=== PATIENT | female | born 1975 | race African-American/Black ===

== ENCOUNTER 2016-11-21 10:26 | Emergency (ER) | payer MEDICARE, OTHER ==
[~2016-11-21] VITALS: Ht 170.2 cm; Wt 70.0 kg
[~2016-11-21 10:26] MED LIST: DEPA500T3 PO; HYDR-2951 PO; METO50TA PO
[2016-11-21] MEDS ORDERED: ZYPR5TAB PO (11:10)
[2016-11-21] MEDS ORDERED: METF500T PO (11:10)
[2016-11-21] MEDS ORDERED: GABA100C4 PO (11:10)
[2016-11-21] MEDS ORDERED: LISI-519 PO (11:10)
[2016-11-21 11:11] VITALS: BP 158/94; PULSE 88; RESP 18; O2SAT 99
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
[2016-11-21] MEDS ORDERED: SODIUM CHLORIDE 0.9% FLUSH 10 ML FLUSH IVF PRN (11:30)
[2016-11-21 12:14] LABS: AUTOMATED NEUTROPHIL # 4.4 TH/MM3 (1.8-7.7); BASOPHIL % 0.5 % (0.0-2.0); EOSINOPHIL % 0.7 % (0.0-4.0); HEMATOCRIT 33.3 % (35.0-46.0); HEMO FLAGS DIFF FINAL; LYMPHOCYTE # 1.7 TH/MM3 (1.0-4.8); MEAN CELL VOLUME 90.1 FL (80.0-100.0); MEAN CORPUSCULAR HEMOGLOBIN 29.4 PG (27.0-34.0); MEAN CORPUSCULAR HGB CONC 32.6 % (32.0-36.0); MONO % 5.8 % (0.0-8.0); PLATELET COUNT 401 TH/MM3 (150-450); RED BLOOD COUNT 3.69 MIL/MM3 (4.00-5.30); RED CELL DISTRIBUTION WIDTH 13.5 % (11.6-17.2); WHITE BLOOD COUNT 6.6 TH/MM3 (4.0-11.0)
[2016-11-21 12:28] VITALS: TEMP 98.8
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
[2016-11-21 12:29] VITALS: O2SAT 98
[2016-11-21 12:36] LABS: ALKALINE PHOSPHATASE 73 U/L (45-117); ALT (GPT) 8 U/L (10-53); ANION GAP 8 MEQ/L (5-15); AST (GOT) 10 U/L (15-37); BICARBONATE 23.2 MEQ/L (21.0-32.0); BLOOD UREA NITROGEN 4 MG/DL (7-18); CHLORIDE 109 MEQ/L (98-107); CREATINE KINASE 142 U/L (26-192); GLOMERULAR FILTRATION RATE 122 ML/MIN (>89); MAGNESIUM 1.6 MG/DL (1.5-2.5); POTASSIUM 3.6 MEQ/L (3.5-5.1); SODIUM (NA) 140 MEQ/L (136-145); TOTAL BILIRUBIN ADULT 0.1 MG/DL (0.2-1.0)
[2016-11-21] MEDS ORDERED: ACETAMINOPHEN 325 MG TAB PO ONE (12:45)
[2016-11-21 12:48] LABS: CKMB LESS THAN 0.5 NG/ML (0.5-3.6)
--- NOTE | 2016-11-21 13:40 | RADRPT ---
EXAM DATE/TIME: 11/21/2016 12:19 [facility] COMPARISON: No previous studies available for comparison. INDICATIONS : Right sided chest pain MEDICAL HISTORY : Diabetes mellitus type II. Hypertension Peripheral vascular disease. SURGICAL HISTORY : None. ENCOUNTER: Initial ACUITY: 4 - 6 days PAIN SCORE: 9/10 LOCATION: Right chest FINDINGS: A single view of the chest demonstrates the lungs to be symmetrically aerated without evidence of mas s, infiltrate or effusion. The cardiomediastinal contours are unremarkable. Osseous structures are intact. CONCLUSION: Normal examination. Abraham Rodríguez MD on November 21, 2016 at 13:35 Board Certified Radiologist. This report was verified electronically.
[2016-11-21 13:51] LABS: BLOOD, URINE NEG (NEG); GLUCOSE,URINE NEG (NEG); KETONE, URINE NEG (NEG); MUCUS URINE FEW /lpf (OCC); NITRITE,URINE NEG (NEG); PH, URINE 7.5 (5.0-8.5); SQUAMOUS EPITHELIAL CELL URINE 1 /hpf (0-5); TRANSITIONAL EPI CELLS, URINE <1 /hpf; URINE COLOR YELLOW (YELLW/STRAW)
[2016-11-21 13:53] LABS: COMMENT (UR) CULT NOT INDICATED; CULTURE IF INDICATED CULT NOT INDICATED
--- NOTE | 2016-11-22 11:36 | EKG ---
Date Performed: 11/21/2016 Time Performed: 10:41:13 PTAGE: 40 years EKG: Sinus rhythm POSSIBLE LEFT ATRIAL ENLARGEMENT NONSPECIFIC T-WAVE ABNORMALITY BORDERLINE ECG NO PREVIOUS TRACING DOCTOR: Baltazar Santana Interpretating Date/Time 11/22/2016 11:35:37
== END 2016-11-21 13:42 | disposition left against medical advice (07) ==
LOC: NEPC 10:26
DX: R07.9 Chest pain, unspecified (principal); M79.672 Pain in left foot; E11.9 Type 2 diabetes mellitus without complications; I10 Essential (primary) hypertension; Z76.5 Malingerer [conscious simulation]; Z79.84 Long term (current) use of oral hypoglycemic drugs; Z79.899 Other long term (current) drug therapy
CPT/HCPCS: 71010; 73630; 80053; 81001; 82550; 82552; 83735; 84484; 84703; 85025; 85379; 85610; 85730; 93005; 99285

== ENCOUNTER 2016-11-26 22:48 | Emergency (ER) | payer MEDICARE, OTHER ==
[~2016-11-26 22:48] MED LIST changes: -DEPA500T3 PO; +GABA100C4 PO; -HYDR-2951 PO; +LISI-519 PO; +METF500T PO; -METO50TA PO; +ZYPR5TAB PO
[2016-11-26 23:20] VITALS: BP 172/90; PULSE 115; RESP 20; TEMP 98.6; O2SAT 100
[2016-11-26] MEDS ORDERED: ASPIRIN 81 MG CHEW TAB CHEW ONE (23:30)
[2016-11-26] MEDS ORDERED: OLANZapine ODT 10 MG TAB PO ONE (23:30)
[2016-11-27 00:22] LABS: BASOPHIL # 0.1 TH/MM3 (0-0.2); BASOPHIL % 0.7 % (0.0-2.0); EOSINOPHIL # 0.1 TH/MM3 (0-0.4); EOSINOPHIL % 0.6 % (0.0-4.0); HEMATOCRIT 31.1 % (35.0-46.0); HEMO FLAGS DIFF FINAL; LYMPHOCYTE # 4.1 TH/MM3 (1.0-4.8); MEAN CELL VOLUME 90.7 FL (80.0-100.0); MEAN CORPUSCULAR HEMOGLOBIN 30.1 PG (27.0-34.0); MEAN CORPUSCULAR HGB CONC 33.2 % (32.0-36.0); MONO % 7.5 % (0.0-8.0); NEUT % 50.2 % (16.0-70.0); PLATELET COUNT 407 TH/MM3 (150-450); RED BLOOD COUNT 3.43 MIL/MM3 (4.00-5.30); RED CELL DISTRIBUTION WIDTH 13.6 % (11.6-17.2); WHITE BLOOD COUNT 9.9 TH/MM3 (4.0-11.0)
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
[2016-11-27 00:35] LABS: ALT (GPT) 19 U/L (10-53); ANION GAP 7 MEQ/L (5-15); AST (GOT) 12 U/L (15-37); BICARBONATE 27.3 MEQ/L (21.0-32.0); BLOOD UREA NITROGEN 16 MG/DL (7-18); CHLORIDE 107 MEQ/L (98-107); GLOMERULAR FILTRATION RATE 99 ML/MIN (>89); POTASSIUM 3.3 MEQ/L (3.5-5.1); SODIUM (NA) 141 MEQ/L (136-145)
[2016-11-27 00:40] LABS: ALKALINE PHOSPHATASE 83 U/L (45-117); TOTAL BILIRUBIN ADULT 0.1 MG/DL (0.2-1.0)
[2016-11-27 00:42] LABS: ALCOHOL LESS THAN 3 MG/DL (0-5)
[2016-11-27] MEDS ORDERED: ACETAMINOPHEN/HYDROcodone 325 MG/5 MG TAB PO ONE (00:45)
[2016-11-27 01:08] VITALS: BP 165/95; PULSE 105; RESP 20; O2SAT 100
[2016-11-27 06:54] VITALS: BP 116/70; PULSE 96; RESP 16; TEMP 97.4; O2SAT 98
--- NOTE | 2016-11-27 07:03 | EKG ---
Date Performed: 11/27/2016 Time Performed: 03:48:17 PTAGE: 41 years EKG: Sinus rhythm WITH SHORT OK INTERVAL NONSPECIFIC T-WAVE ABNORMALITY BORDERLINE ECG PREVIOUS TRACING : 11/21/2016 10.41 No significant change from previous tracing noted. DOCTOR: Randall Tran Interpretating Date/Time 11/27/2016 07:01:58
[2016-11-27 11:43] VITALS: BP 127/68; PULSE 87; RESP 12
[2016-11-27 14:30] VITALS: BP 140/90; PULSE 99; RESP 18
== END 2016-11-27 16:58 ==
LOC: NEPE 22:48 → NEPJ 11-27 16:58
DX: R07.9 Chest pain, unspecified (principal); D64.9 Anemia, unspecified; E87.6 Hypokalemia; R00.0 Tachycardia, unspecified; F20.9 Schizophrenia, unspecified; F31.9 Bipolar disorder, unspecified; E11.9 Type 2 diabetes mellitus without complications; R94.31 Abnormal electrocardiogram [ECG] [EKG]; Z79.899 Other long term (current) drug therapy
CPT/HCPCS: 80053; 80307; 84484; 85025; 93005; 99285

== ENCOUNTER 2016-11-30 18:15 | Emergency (ER) | payer OTHER ==
[~2016-11-30] VITALS: Ht 170.2 cm; Wt 68.0 kg
[2016-11-30 18:16] VITALS: BP 142/92; PULSE 108; RESP 20; TEMP 98.3; O2SAT 98
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
--- NOTE | 2016-11-30 19:15 | RADRPT ---
EXAM DATE/TIME: 11/30/2016 18:49 CORRECTION Corrected on: November 30, 2016; [facility] COMPARISON: FOOT LEFT COMPLETE ([id number]), November 21, 2016, 12:21. INDICATIONS : Left foot pain and swelling. Patient was diagnosed with a left foot fracture 2 weeks ago. Patient w as taken out of the soft cast today. MEDICAL HISTORY : Diabetes mellitus type II. Peripheral vascular disease. Hypertension. SURGICAL HISTORY : None. ENCOUNTER: Initial ACUITY: 1 day PAIN SCORE: 9/10 LOCATION: Left dorsal foot. FINDINGS: There appears to be a possible acute appearing fracture at the medial proximal base of the fifth dist al phalanx extending into the fifth MTP joint. No other acute fracture is seen. There is chronic manas osteal reaction at the second and third metatarsals from prior fractures. There is also periosteal re action at the proximal aspect of the fourth metatarsal. This is likely also chronic. There some evide nce of the fracture line that can faintly be seen. This could conceivably be more recent injury howev er, given the other metatarsal fractures, it is likely chronic. There is a mild hallux valgus deformi ty. No areas of bony destruction are seen. CONCLUSION: Suspected nondisplaced fracture at the proximal medial base of the fifth proximal phalanx. Prior seco nd through fourth metatarsal fractures with chronic periosteal reaction are also seen. Sonu Grace MD on November 30, 2016 at 19:09 Board Certified Radiologist. This report was verified electronically. Sonu Grace MD on November 30, 2016 at 19:26 Board Certified Radiologist. This report was verified electronically.
--- NOTE | 2016-11-30 19:24 | RADRPT ---
EXAM DATE/TIME: 11/30/2016 18:52 [facility] COMPARISON: No previous studies available for comparison. INDICATIONS : Left ankle pain swelling and pain. MEDICAL HISTORY : Diabetes mellitus type II. Peripheral vascular disease. Hypertension. SURGICAL HISTORY : None. ENCOUNTER: Initial ACUITY: 1 day PAIN SCORE: 9/10 LOCATION: Left anterior ankle. FINDINGS: An acute fracture is not seen. The ankle is normally aligned. There are old fractures seen at the sec ond and third metatarsals. There is a fracture of the more proximal aspect of the fourth metatarsal. The fracture line can still be seen and there does appear to be some periosteal reaction at the fract ure site. This can be a more recent fracture. Calcifications are seen in the inferior soft tissues of the left lower leg. CONCLUSION: No fracture at the ankle is seen. There are second and third metatarsal fractures which are old. The fourth metatarsal fracture age is not definitely known. There some suggestive of a fracture line that can be seen, there does appear be some periosteal reaction. Sonu Grace MD on November 30, 2016 at 19:18 Board Certified Radiologist. This report was verified electronically.
[2016-11-30] MEDS ORDERED: IBUPROFEN 800 MG TAB PO ONE (19:30)
[2016-11-30] MEDS ORDERED: IBUP800T23 PO (19:34)
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
[2016-11-30] MEDS ORDERED: MELO-1 PO (19:37)
[2016-11-30] MEDS ORDERED: NORC5TAB PO (22:01)
[2016-12-01] MEDS ORDERED: AMOX500C PO (09:37)
[2016-12-01] MEDS ORDERED: IBUP800T23 PO (09:37)
[2016-12-01] MEDS ORDERED: PERI0.126 SWISH-SPIT (09:37)
[2016-12-01] MEDS ORDERED: LISI10TA3 PO (09:58)
== END 2016-11-30 20:22 | disposition home or self-care (01) ==
LOC: NEPK 18:15
DX: S92.515D Nondisplaced fracture of proximal phalanx of left lesser toe(s), subsequent encounter for fracture with routine healing (principal); F31.9 Bipolar disorder, unspecified; E11.9 Type 2 diabetes mellitus without complications; I10 Essential (primary) hypertension; R56.9 Unspecified convulsions; F41.9 Anxiety disorder, unspecified; J45.909 Unspecified asthma, uncomplicated; V29.9XXD Motorcycle rider (driver) (passenger) injured in unspecified traffic accident, subsequent encounter; Z86.73 Personal history of transient ischemic attack (TIA), and cerebral infarction without residual deficits
CPT/HCPCS: 71010; 73610; 73630; 80048; 84484; 85025; 93005; 99283; 99285; E0113; L3260

== ENCOUNTER 2016-11-30 21:09 | Emergency (ER) | payer OTHER ==
[~2016-11-30 21:09] MED LIST changes: +IBUP800T23 PO; +MELO-1 PO
[2016-11-30 21:12] VITALS: BP 188/107; PULSE 97; RESP 18; TEMP 98.1; O2SAT 99
[2016-11-30 21:40] VITALS: BP 169/102; PULSE 94; RESP 16; TEMP 98.4; O2SAT 100
[2016-11-30] MEDS ORDERED: SODIUM CHLORIDE 0.9% FLUSH 10 ML FLUSH IVF PRN (21:45)
[2016-11-30] MEDS ORDERED: ASPIRIN 81 MG CHEW TAB PO ONE (21:45)
--- NOTE | 2016-11-30 21:52 | PD ---
HPI . Chest pain Chief Complaint: Chest Pain Time Seen by Provider: 21:37 Travel History International Travel<30 days: No Contact w/Intl Traveler<30days: No Traveled to known affect area: No History of Present Illness HPI This patient presents with chief complaint of chest pain. Onset was earlier today. She rates the pain as 9/10. She states that it radiates to her right shoulder. She states that her right arm is numb. No exacerbating or relieving factors. This patient reports that she has had 3 previous heart attacks and a previous stroke. She states that these were treated in the [facility]. The patient states that she was just discharged from here where she was being seen for her toe. She was taking a cab home but told the cabinet assembler to return here because she had been feeling poorly all day and had been having chest pain earlier today. PFSH Past Medical History Bipolar Disorder: Yes Anxiety: Yes Depression: Yes Cancer: Yes (SKIN PER PT) Cardiac Catheterization: Yes (2 STENTS) Cardiovascular Problems: Yes ([place]) Cerebrovascular Accident: Yes Diabetes: Yes Diminished Hearing: No Endocrine: No Genitourinary: No Hypertension: Yes Immune Disorder: No Implanted Vascular Access Dvce: Yes Musculoskeletal: Yes (CHRONIC BACK PAIN, HERNIATED DISC; "butterfly fx left foot" (11/13)) Neurologic: Yes (HX OF HEAD INJURY 2007, BRAIN INJURY) Psychiatric: Yes (pressured speech, grandiose delusions, paranoid thoughts, flight of ideas) Reproductive: No Respiratory: Yes (asthma) Migraines: Yes Myocardial Infarction: Yes (X 2 W/ STENT PLACEMENT ) Seizures: Yes (PT STATES " LONG TIME AGO") PNEUMOCCOCAL Vaccine (Year): 2 ?: Not Para: 2 Past Surgical History Abdominal Surgery: No Body Medical Devices: BREAST IMPLANTS Cardiac Surgery: No Ear Surgery: No Endocrine Surgery: No Eye Surgery: No Genitourinary Surgery: No Gynecologic Surgery: No Oral Surgery: No Thoracic Surgery: No Other Surgery: Yes (BREAST AUGMENTATION) Social History Alcohol Use: No (DENIES) Tobacco Use: No (DENIES) Substance Use: No (DENIES) Allergies-Medications (Allergen,Severity, Reaction): Coded Allergies: risperidone (Verified Allergy, Severe, 11/30/16) shellfish derived (Verified Allergy, Severe, Anaphylaxis, 11/30/16) Reported Meds & Prescriptions Reported Meds & Active Scripts Active Meloxicam 15 Mg Tab 15 Mg PO DAILY PRN Reported [place] (Hydrocodone-Acetaminophen) 5-325 mg Tab 1 Tab PO Q6H PRN Zyprexa (Olanzapine) 5 Mg Tab 15 Mg PO HS Gabapentin 100 Mg Cap 100 Mg PO BID Lisinopril 5 Mg Tab 5 Mg PO DAILY Metformin (Metformin HCl) 500 Mg Tab 500 Mg PO BIDPC With meals Review of Systems Except as stated in HPI: all other systems reviewed are Neg Cardiovascular: Positive: Chest Pain or Discomfort Musculoskeletal: Positive: Myalgias, Arthralgias Neurologic: Positive: Paresthesia Physical Exam Narrative GENERAL: Patient is awake and alert. She is in no distress. SKIN: warm/dry. HEAD: Normocephalic. Atraumatic. EYES: Pupils equal and round. No scleral icterus. No injection or drainage. ENT: No nasal bleeding or discharge. Mucous membranes pink and moist. NECK: Trachea midline. Full range of motion without pain.. CARDIOVASCULAR: Regular rate and rhythm. Heart sounds are normal. RESPIRATORY: No accessory muscle use. Clear to auscultation. Breath sounds equal bilaterally. GASTROINTESTINAL: Abdomen soft. Nontender. Bowel sounds present. Nondistended. MUSCULOSKELETAL: No obvious deformities. NEUROLOGICAL: Awake and alert. No obvious cranial nerve deficits. Motor grossly within normal limits. Normal speech. PSYCHIATRIC: Pressured speech. Data Data Last Documented VS Vital Signs Date Time Temp Pulse Resp B/P (MAP) Pulse Ox O2 Delivery O2 Flow Rate FiO2 11/30/16 21:40 98 100 Room Air 11/30/16 21:40 98.4 16 169/102 (124) Orders Orders Electrocardiogram (11/30/16 21:44) Basic Metabolic Panel (Bmp) (11/30/16 21:44) Complete Blood Count With Diff (11/30/16 21:44) Troponin I (12/01/16 21:44) Chest, Single Ap (11/30/16 21:44) Ecg Monitoring (11/30/16 21:44) Iv Access Insert/Monitor (11/30/16 21:44) Oximetry (11/30/16 21:44) Aspirin Chew (Aspirin Chew) (11/30/16 21:45) Sodium Chloride 0.9% Flush (Ns Flush) (11/30/16 21:45) Troponin I (11/30/16 22:10) Troponin I (12/01/16 00:47) Labs Laboratory Tests Test 11/30/16 22:10 12/01/16 01:12 White Blood Count 7.3 TH/MM3 Red Blood Count 3.53 MIL/MM3 Hemoglobin 10.6 GM/DL Hematocrit 32.0 % Mean Corpuscular Volume 90.6 FL Mean Corpuscular Hemoglobin 29.9 PG Mean Corpuscular Hemoglobin Concent 33.0 % Red Cell Distribution Width 14.0 % Platelet Count 430 TH/MM3 Mean Platelet Volume 7.8 FL Neutrophils (%) (Auto) 54.5 % Lymphocytes (%) (Auto) 34.8 % Monocytes (%) (Auto) 7.7 % Eosinophils (%) (Auto) 2.2 % Basophils (%) (Auto) 0.8 % Neutrophils # (Auto) 4.0 TH/MM3 Lymphocytes # (Auto) 2.5 TH/MM3 Monocytes # (Auto) 0.6 TH/MM3 Eosinophils # (Auto) 0.2 TH/MM3 Basophils # (Auto) 0.1 TH/MM3 CBC Comment DIFF FINAL Differential Comment Blood Urea Nitrogen 6 MG/DL Creatinine 0.66 MG/DL Random Glucose 88 MG/DL Calcium Level 8.9 MG/DL Sodium Level 141 MEQ/L Potassium Level 3.9 MEQ/L Chloride Level 104 MEQ/L Carbon Dioxide Level 29.1 MEQ/L Anion Gap 8 MEQ/L Estimat Glomerular Filtration Rate 119 ML/MIN Troponin I LESS THAN 0.02 NG/ML 0.02 NG/ML MDM Medical Decision Making Medical Screen Exam Complete: Yes Emergency Medical Condition: Yes Medical Record Reviewed: Yes (this patient was just seen here at 6 PM for a foot injury. She was here on 11/27 as a Simpson Act.) Interpretation(s) EKG shows a sinus rhythm. Rate is 87. She has LVH. No acute ischemic changes. Differential Diagnosis Differential diagnosis of chest pain includes but is not limited to musculoskeletal pain, pulmonary embolism, acute coronary syndrome, pneumonia, pleurisyI Narrative Course This patient presents to us with the chief complaint of chest pain. She was seen here at about 6 PM with a toe injury. She did not mention chest pain at that time. This patient's symptoms are likely psychological or possibly drug- seeking/malingering. I have ordered 2 troponin levels, 3 hours apart. If they are negative, the patient will be discharged to home. CBC & BMP Diagram 11/30/16 22:10 Calcium Level 8.9 Initial troponin is less than 0.02. CXR neg. Repeat trop 0.02. The history, exam, diagnostic testing, and current condition do not suggest any significant pathology to warrant further testing, continued ED treatment, admission, or surgical evaluation at this point. No EMC was found. The patient 's condition is stable and appropriate for discharge. Diagnosis Primary Impression: Chest pain Qualified Codes: R07.9 - Chest pain, unspecified Patient Instructions: Chest Pain (DC), General Instructions Disposition: 01 DISCHARGE HOME Condition: Stable Yolanda Aden MD Nov 30, 2016 21:52
[2016-11-30] MEDS ORDERED: NORC5TAB PO (22:01)
[2016-11-30 22:19] LABS: BASOPHIL # 0.1 TH/MM3 (0-0.2); BASOPHIL % 0.8 % (0.0-2.0); EOSINOPHIL # 0.2 TH/MM3 (0-0.4); EOSINOPHIL % 2.2 % (0.0-4.0); HEMO FLAGS DIFF FINAL; LYMPH % 34.8 % (9.0-44.0); LYMPHOCYTE # 2.5 TH/MM3 (1.0-4.8); MEAN CELL VOLUME 90.6 FL (80.0-100.0); MEAN CORPUSCULAR HEMOGLOBIN 29.9 PG (27.0-34.0); MONO % 7.7 % (0.0-8.0); NEUT % 54.5 % (16.0-70.0); PLATELET COUNT 430 TH/MM3 (150-450); RED BLOOD COUNT 3.53 MIL/MM3 (4.00-5.30); WHITE BLOOD COUNT 7.3 TH/MM3 (4.0-11.0)
[2016-11-30 22:40] LABS: ANION GAP 8 MEQ/L (5-15); BICARBONATE 29.1 MEQ/L (21.0-32.0); BLOOD UREA NITROGEN 6 MG/DL (7-18); CHLORIDE 104 MEQ/L (98-107); GLOMERULAR FILTRATION RATE 119 ML/MIN (>89); POTASSIUM 3.9 MEQ/L (3.5-5.1); SODIUM (NA) 141 MEQ/L (136-145)
--- NOTE | 2016-11-30 23:31 | RADRPT ---
EXAM DATE/TIME: 11/30/2016 22:20 [facility] COMPARISON: CHEST SINGLE AP, November 21, 2016, 12:19. INDICATIONS : Chest pain. MEDICAL HISTORY : Diabetes mellitus type II. Hypertension Peripheral vascular disease. SURGICAL HISTORY : 2 cardiac stents. ENCOUNTER: Initial ACUITY: 2 days PAIN SCORE: 4/10 LOCATION: chest FINDINGS: A single view of the chest demonstrates the lungs to be symmetrically aerated without evidence of mas s, infiltrate or effusion. The cardiomediastinal contours are unremarkable. Osseous structures are intact. CONCLUSION: No acute disease. Sonu Grace MD on November 30, 2016 at 23:30 Board Certified Radiologist. This report was verified electronically.
[2016-12-01 04:24] VITALS: BP 122/73
[2016-12-01] MEDS ORDERED: IBUP800T23 PO (09:37)
[2016-12-01] MEDS ORDERED: AMOX500C PO (09:37)
[2016-12-01] MEDS ORDERED: PERI0.126 SWISH-SPIT (09:37)
[2016-12-01] MEDS ORDERED: LISI10TA3 PO (09:58)
--- NOTE | 2016-12-01 14:52 | EKG ---
Date Performed: 11/30/2016 Time Performed: 22:04:46 PTAGE: 41 years EKG: Sinus rhythm MODERATE VOLTAGE CRITERIA FOR LVH, CONSIDER NORMAL VARIANT NONSPECIFIC T-WAVE ABNORMALITY BORDERLINE ECG PREVIOUS TRACING : 11/27/2016 03.48 Compared to prior tracing no significant change DOCTOR: Rolando Perrin Interpretating Date/Time 12/01/2016 14:51:09
== END 2016-12-01 04:43 | disposition home or self-care (01) ==
LOC: NEPE 21:09
DX: R07.9 Chest pain, unspecified (principal); M79.1 Myalgia; F31.9 Bipolar disorder, unspecified; F41.9 Anxiety disorder, unspecified; E11.9 Type 2 diabetes mellitus without complications; I10 Essential (primary) hypertension; J45.909 Unspecified asthma, uncomplicated; R56.9 Unspecified convulsions; Z86.73 Personal history of transient ischemic attack (TIA), and cerebral infarction without residual deficits
CPT/HCPCS: 71010; 80048; 84484; 85025; 93005

== ENCOUNTER 2016-12-01 09:05 | Emergency (ER) | payer OTHER ==
[~2016-12-01] VITALS: Ht 170.2 cm; Wt 70.0 kg
[~2016-12-01 09:05] MED LIST changes: -IBUP800T23 PO; +NORC5TAB PO
[2016-12-01 09:13] VITALS: BP 160/88; PULSE 114; RESP 16; TEMP 98.4; O2SAT 98
[2016-12-01] MEDS ORDERED: IBUP800T23 PO (09:37)
[2016-12-01] MEDS ORDERED: AMOX500C PO (09:37)
[2016-12-01] MEDS ORDERED: PERI0.126 SWISH-SPIT (09:37)
--- NOTE | 2016-12-01 09:39 | PD ---
HPI Chief Complaint: Oral / Dental Pain or Problem Time Seen by Provider: 09:36 Travel History International Travel<30 days: No Contact w/Intl Traveler<30days: No Traveled to known affect area: No History of Present Illness HPI 41-year-old female presents emergency Department with complaint of right upper dental pain that exacerbated overnight. This is a patient that I saw yesterday for complaint of left foot pain and was requesting pain medications. She is currently requesting Ultram for her dental pain. Says she felt feverish with some chills. Denies vomiting. Denies sore throat, difficulty swallowing. Has not taken any medication or tried any treatments to review her symptoms. Symptoms are mild in severity. No known aggravating or relieving factors. Allergies to risperidone and shellfish. PFSH Past Medical History Bipolar Disorder: Yes Anxiety: Yes Depression: Yes Cancer: Yes (SKIN PER PT) Cardiac Catheterization: Yes (2 STENTS) Cardiovascular Problems: Yes ([place]) Cerebrovascular Accident: Yes (2010 ) Diabetes: Yes Diminished Hearing: No Endocrine: No Genitourinary: No Hypertension: Yes Immune Disorder: No Implanted Vascular Access Dvce: Yes Musculoskeletal: Yes (CHRONIC BACK PAIN, HERNIATED DISC; "butterfly fx left foot" (11/13)) Neurologic: Yes (HX OF HEAD INJURY 2007, BRAIN INJURY) Psychiatric: Yes (pressured speech, grandiose delusions, paranoid thoughts, flight of ideas) Reproductive: No Respiratory: Yes (asthma) Integumentary: Yes (skin cancer face and back, lung cancer stage 2) Migraines: Yes Myocardial Infarction: Yes (x2) Seizures: Yes (PT STATES " LONG TIME AGO") PNEUMOCCOCAL Vaccine (Year): 2 ?: Not Para: 2 Ectopic : Yes Past Surgical History Abdominal Surgery: No Body Medical Devices: BREAST IMPLANTS Cardiac Surgery: Yes (2 caths with 2 stents) Coronary Artery Bypass Graft: Yes Ear Surgery: No Endocrine Surgery: No Eye Surgery: No Genitourinary Surgery: No Gynecologic Surgery: No Joint Replacement: Yes Oral Surgery: No Thoracic Surgery: No Other Surgery: Yes (BREAST AUGMENTATION) Social History Alcohol Use: No Tobacco Use: Yes Substance Use: No Allergies-Medications (Allergen,Severity, Reaction): Coded Allergies: risperidone (Verified Allergy, Severe, 11/30/16) shellfish derived (Verified Allergy, Severe, Anaphylaxis, 11/30/16) Reported Meds & Prescriptions Reported Meds & Active Scripts Active Peridex Liq (Chlorhexidine Gluconate (Mouth) Liq) 0.12% Soln 15 Ml SWISH-SPIT BID 10 Days Ibuprofen 800 Mg Tab 800 Mg PO Q6HR PRN Amoxicillin 500 Mg Cap 500 Mg PO BID 10 Days Meloxicam 15 Mg Tab 15 Mg PO DAILY PRN Reported [place] (Hydrocodone-Acetaminophen) 5-325 mg Tab 1 Tab PO Q6H PRN Zyprexa (Olanzapine) 5 Mg Tab 15 Mg PO HS Gabapentin 100 Mg Cap 100 Mg PO BID Lisinopril 5 Mg Tab 5 Mg PO DAILY Metformin (Metformin HCl) 500 Mg Tab 500 Mg PO BIDPC With meals Review of Systems Except as stated in HPI: all other systems reviewed are Neg Physical Exam Narrative GENERAL: Well-nourished, well-developed black female patient, in no acute distress; afebrile, nontoxic-appearing SKIN: Warm and dry. HEAD: Atraumatic. Normocephalic. No facial edema, erythema, tenderness on palpation. No lymphadenopathy. EYES: Pupils equal and round. No scleral icterus. No injection or drainage. ENT: Mucosa pink and moist. No erythema or exudates. No uvular edema. No uvular , palatal, or tonsillar deviation. Airway patent. EARS: Bilateral pinnae and external canals appear within normal limits. Bilateral tympanic membranes without erythema, dullness or perforation. MOUTH: Mucous membranes moist, no lesions, tongue and gums appear normal. Partially edentulous. Poor dentition throughout. Right upper molars with teeth down to the gumline; area with tenderness on palpation. Surrounding gingiva is without erythema, edema, drainage. No obvious abscess noted. NECK: Trachea midline. No lymphadenopathy. CARDIOVASCULAR: Regular rate. RESPIRATORY: No accessory muscle use. GASTROINTESTINAL: Flat. MUSCULOSKELETAL: No obvious deformities. No clubbing. No cyanosis. No edema. NEUROLOGICAL: Awake and alert. Oriented 3. No obvious cranial nerve deficits. Motor grossly within normal limits. Normal speech. PSYCHIATRIC: Appropriate mood and affect; insight and judgment normal. Data Data Last Documented VS Vital Signs Date Time Temp Pulse Resp B/P (MAP) Pulse Ox O2 Delivery O2 Flow Rate FiO2 12/01/16 09:13 98.4 114 16 160/88 (112) 98 MDM Medical Decision Making Medical Screen Exam Complete: Yes Emergency Medical Condition: Yes Medical Record Reviewed: Yes Differential Diagnosis Dentalgia, dental abscess, narcotic seeking, malingering Narrative Course This is a 41-year-old female complaining of dentalgia that exacerbated overnight. She is requesting Ultram for her dental pain. This patient was also seen yesterday with an old left foot fracture and was requesting pain medications at that time also. Patient has no facial edema, erythema. Patient is afebrile and nontoxic-appearing. Amoxicillin, Peridex mouth rinse, ibuprofen prescribed for home. Emergency dental information sheet provided for follow-up. Instructed patient to follow up with dentist. Patient provided [facility] information for follow-up also. Instructed patient to follow up with primary care provider. Patient verbalizes understanding and agreement with treatment plan. Patient is medically cleared and stable for discharge. Discussed reasons to return to the emergency department. Patient agrees with treatment plan. The patients vital signs are stable and the patient is stable for outpatient follow-up and treatment. Patient discharged home, stable and in no acute distress. 0950: Patient apparently became agitated that I would not give her Ultram for her pain and walked out to the triage desk and requested to be seen by . The patient was moved to a medical bed. I spoke with Dr. Hoffman in regards to the patient and Dr. Stanford says that she has history of bipolar disorder and she had Simpson acted her about a week ago and sent her to the [facility]. Dr. Hoffman will evaluate the patient and determine if the patient is safe for discharge. See Dr. Oconnor alternate provider note. Diagnosis Primary Impression: Dentalgia Referrals: [facility] Dentist Primary Care Physician Patient Instructions: Dental Abscess (ED), Dental Caries (ED), General Instructions, Toothache (ED) Additional Instructions: Complete full course of antibiotics Ibuprofen or Tylenol as directed and as needed to reduce pain and inflammation Use Peridex as directed for oral hygiene Warm or cool compresses to the affected area Follow-up with dentist Follow-up with primary care provider Return to emergency department immediately with worsening of symptoms Med/Other Pt SpecificInfo: Prescription(s) given Scripts Chlorhexidine Gluconate (Mouth) Liq (Peridex Liq) 0.12% Soln 15 ML SWISH-SPIT BID for 10 Days, #300 ML 0 Refills Prov: RassCrystal barrett 12/01/16 Ibuprofen (Ibuprofen) 800 Mg Tab 800 MG PO Q6HR Y for PAIN, #30 TAB 0 Refills Prov: Crystal Larose 12/01/16 Disposition: 01 DISCHARGE HOME Condition: Stable Crystal Larose Dec 01, 2016 09:39
[2016-12-01] MEDS ORDERED: LISI10TA3 PO (09:58)
[2016-12-01 09:59] VITALS: PULSE 104; RESP 20; O2SAT 98
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
== END 2016-12-01 10:08 | disposition home or self-care (01) ==
LOC: NEPK 09:05 → NEPD 10:08
DX: K08.89 Other specified disorders of teeth and supporting structures (principal); E11.9 Type 2 diabetes mellitus without complications; I10 Essential (primary) hypertension; Z72.0 Tobacco use
CPT/HCPCS: 99283